=== PATIENT | female | born 1955 | race African-American/Black ===

== ENCOUNTER 2019-06-02 11:19 | Day surgery (SDC) | payer OTHER, BC ==
[2019-05-31 11:30] VITALS: BMI 30.2
[2019-06-02] MEDS ORDERED: PROPOFOL 20 ML ONE ×2 (14:07)
[2019-06-02 14:54] VITALS: TEMP 97.8
[2019-06-02 15:38] VITALS: BP 121/70; PULSE 58
--- NOTE | 2019-06-04 16:23 | PATH ---
Surgical Pathology Report Patient Name: BHAVIK REED [facility]. Rec. #: [id number] /Age/Gender: 1955 (Age: 64) / F Account: [id number] Location: [facility] Taken: 06/02/2019 Received: 06/02/2019 Reported: 06/04/2019 Physicians: Johanne Chester M.D. Specimen(s) Received A: POLYP DESCENDING COLON B: POLYP SIGMOID COLON Clinical History Surveillance colonoscopy Postoperative diagnosis: Colon polyps, hemorrhoids Final Diagnosis A. DESCENDING COLON POLYP, BIOPSY: COLONIC MUCOSA WITH FOCAL SURFACE HYPERPLASTIC CHANGE. B. SIGMOID COLON POLYP, POLYPECTOMY: HYPERPLASTIC POLYP. Electronically Signed Priyanka Silva M.D. Gross Description A. Received in formalin, labeled "biopsy polyp descending colon" is a storm, irregular portion of soft tissue measuring 0.4 cm. in greatest dimension. The specimen is submitted in toto in one cassette. B. Received in formalin, labeled "biopsy polyp sigmoid colon" is a storm, irregular portion of soft tissue measuring 0.4 cm. in greatest dimension. The specimen is submitted in toto in one cassette. DL/06/03/2019 saudi/06/03/2019
== END 2019-06-02 15:38 | disposition home or self-care (01) ==
LOC: FASU-ENDO 11:19
PROVIDERS: ATTEND Internal Medicine Gastroenterology
PROC: 0DBN8ZX Excision of Sigmoid Colon, Via Natural or Artificial Opening Endoscopic, Diagnostic (ICD-10-PCS; 2019-06-02)
PROC: 0DBM8ZX Excision of Descending Colon, Via Natural or Artificial Opening Endoscopic, Diagnostic (ICD-10-PCS; principal; 2019-06-02 14:26)
DX: Z86.010 Personal history of colon polyps (principal); D12.5 Benign neoplasm of sigmoid colon; K63.89 Other specified diseases of intestine; K64.1 Second degree hemorrhoids
CPT/HCPCS: 88305-TC

== ENCOUNTER 2019-11-24 10:44 | Day surgery (SDC) | payer OTHER, BC ==
[2019-11-23 15:59] VITALS: BMI 31.7
[2019-11-24] MEDS ORDERED: PROPOFOL 20 ML ONE ×2 (12:42)
[2019-11-24] MEDS ORDERED: LIDOCAINE HCL/PF 2% SDV 5ML VIAL ONE (12:42)
[2019-11-24 13:07] VITALS: TEMP 98
[2019-11-24 14:12] VITALS: BP 110/65; PULSE 61
--- NOTE | 2019-11-29 15:13 | PATH ---
Surgical Pathology Report Patient Name: BHAVIK REED [facility]. Rec. #: [id number] /Age/Gender: 1955 (Age: 64) / F Account: [id number] Location: [facility] Taken: 11/24/2019 Received: 11/24/2019 Reported: 11/29/2019 Physicians: Johanne Chester M.D. Specimen(s) Received A: SECOND PORTION OF DUODENUM B: ANTRUM C: BX GE JUNCTION Clinical History Dyspepsia Postoperative diagnosis: Gastritis Final Diagnosis A. SECOND PORTION OF DUODENUM, BIOPSY: DUODENAL MUCOSA WITH NO PATHOLOGIC FINDINGS. B. GASTRIC ANTRUM, BIOPSY: MILD CHRONIC GASTRITIS WITH FEATURES OF REACTIVE GASTROPATHY. IMMUNOSTAIN IS NEGATIVE FOR H. PYLORI ORGANISMS. C. GE JUNCTION, BIOPSY: COLUMNAR (GASTRIC CARDIA-TYPE) MUCOSA SHOWING MILD CHRONIC INFLAMMATION. NEGATIVE FOR INTESTINAL METAPLASIA. NO ESOPHAGEAL (SQUAMOUS) MUCOSA IS IDENTIFIED. Electronically Signed Rosenda Benson M.D. Gross Description A. Received in formalin, labeled "biopsy second portion of duodenum" is a storm, irregular portion of soft tissue measuring 0.3 cm. in greatest dimension. The specimen is submitted in toto in one cassette. B. Received in formalin, labeled "biopsy gastric antrum" is a storm, irregular portion of soft tissue measuring 0.4 cm. in greatest dimension. The specimen is submitted in toto in one cassette. C. Received in formalin, labeled "biopsy GE junction" is a storm, irregular portion of soft tissue measuring 0.4 cm. in greatest dimension. The specimen is submitted in toto in one cassette. 11/25/2019 [facility]11/25/2019
== END 2019-11-24 13:55 | disposition home or self-care (01) ==
LOC: FASU-ENDO 10:44
PROVIDERS: ATTEND Internal Medicine Gastroenterology
PROC: 0DB68ZX Excision of Stomach, Via Natural or Artificial Opening Endoscopic, Diagnostic (ICD-10-PCS; 2019-11-24)
PROC: 0DB48ZX Excision of Esophagogastric Junction, Via Natural or Artificial Opening Endoscopic, Diagnostic (ICD-10-PCS; 2019-11-24)
PROC: 0DB98ZX Excision of Duodenum, Via Natural or Artificial Opening Endoscopic, Diagnostic (ICD-10-PCS; principal; 2019-11-24 12:53)
DX: K29.50 Unspecified chronic gastritis without bleeding (principal); K31.9 Disease of stomach and duodenum, unspecified; K20.9 Esophagitis, unspecified; R10.13 Epigastric pain
CPT/HCPCS: 88305-TC; 88342-TC

== ENCOUNTER 2021-12-26 04:21 | Day surgery (SDC) | payer OTHER, BC ==
[2021-12-20 12:46] VITALS: BMI 32.6
[2021-12-26] MEDS ORDERED: BUPIVACAINE HCL/PF 0.5% (5MG/ML) 10 ML VIAL ONE (09:36)
[2021-12-26] MEDS ORDERED: MIDAZOLAM HCL 2 MG/2 ML SINGLE DOSE VIAL ONE (09:46)
[2021-12-26] MEDS ORDERED: PROPOFOL 20 ML ONE (09:46)
[2021-12-26] MEDS ORDERED: LIDOCAINE HCL/PF 2% SDV 5ML VIAL ONE (09:51)
[2021-12-26] MEDS ORDERED: ceFAZolin SODIUM 1 GM VIAL ONE (10:14)
[2021-12-26] MEDS ORDERED: ceFAZolin SODIUM 1 GM VIAL IVPB ONE (10:15)
[2021-12-26] MEDS ORDERED: KETOROLAC TROMETHAMINE 30 MG/1 ML VIAL ONE (10:26)
[2021-12-26] MEDS ORDERED: BUPIVACAINE HCL/PF 0.5% (5 MG/ML) 30 ML VIAL IJ ONE (10:30)
[2021-12-26] MEDS ORDERED: oxyCODONE HCL 5 MG TABLET PO PRN (11:13)
[2021-12-26] MEDS ORDERED: ONDANSETRON 4 MG/2 ML VIAL IVPUSH PRN (11:13)
[2021-12-26] MEDS ORDERED: LACTATED RINGERS SOLUTION 1,000 ML IV SCH (11:15)
[2021-12-26] MEDS ORDERED: hydrALAZINE HCL 20 MG/ML VIAL ONE (11:38)
[2021-12-26] MEDS ORDERED: ACETAMINOPHEN 325 MG TABLET (FP) ONE (13:40)
[2021-12-26] MEDS ORDERED: ACETAMINOPHEN 325 MG TABLET (FP) PO ONE (13:45)
[2021-12-26 13:49] VITALS: RESP 20
[2021-12-26 15:26] VITALS: BP 137/80; PULSE 70; TEMP 97.2
== END 2021-12-26 15:00 | disposition home or self-care (01) ==
LOC: JASU-SURG 04:21
PROVIDERS: ATTEND Orthopaedic Surgery
PROC: 0SBC4ZZ Excision of Right Knee Joint, Percutaneous Endoscopic Approach (ICD-10-PCS; 2021-12-26)
PROC: 0SBC4ZZ Excision of Right Knee Joint, Percutaneous Endoscopic Approach (ICD-10-PCS; principal; 2021-12-26 09:30)
DX: S83.281A Other tear of lateral meniscus, current injury, right knee, initial encounter (principal); S83.241A Other tear of medial meniscus, current injury, right knee, initial encounter; X58.XXXA Exposure to other specified factors, initial encounter; Y93.9 Activity, unspecified; Y92.9 Unspecified place or not applicable; Y99.9 Unspecified external cause status; M17.11 Unilateral primary osteoarthritis, right knee
CPT/HCPCS: 94760

== ENCOUNTER 2023-01-21 09:08 | Day surgery (SDC) | payer OTHER, BC ==
[2023-01-16 17:13] VITALS: BMI 32.1
[2023-01-21] MEDS ORDERED: CEFAZOLIN 2 GM in DEXTROSE 5%-WATER - 50 ML IVPB ONE (09:55)
[2023-01-21] MEDS ORDERED: ceFAZolin SODIUM 1 GM VIAL ONE (10:11)
[2023-01-21] MEDS ORDERED: VANCOMYCIN 1,000 MG VIAL (RESTRICTED TO ID ONLY) ONE (10:12)
[2023-01-21] MEDS ORDERED: BUPIVACAINE HCL/PF 0.5% (5 MG/ML) 30 ML VIAL IJ ONE (10:18)
[2023-01-21] MEDS ORDERED: BUPIVACAINE LIPOSOME/PF (EXPAREL) 266 MG/20 ML VIAL ONE (10:18)
[2023-01-21] MEDS ORDERED: MIDAZOLAM HCL 2 MG/2 ML SINGLE DOSE VIAL ONE ×3 (10:18→12:30)
[2023-01-21] MEDS ORDERED: CELECOXIB 200 MG CAPSULE PO ONE (11:00)
[2023-01-21] MEDS ORDERED: ALBUTEROL SO4 HFA INHALER IH PRN (11:42)
[2023-01-21] MEDS ORDERED: ONDANSETRON 4 MG/2 ML VIAL IVPUSH PRN ×2 (11:43→13:35)
[2023-01-21] MEDS ORDERED: TRANEXAMIC ACID 1000 MG/10 ML VIAL IVPUSH ONE (12:00)
[2023-01-21] MEDS ORDERED: ONDANSETRON 4 MG/2 ML VIAL ONE (12:06)
[2023-01-21] MEDS ORDERED: TRANEXAMIC ACID 1000 MG/10 ML VIAL ONE (12:06)
[2023-01-21] MEDS ORDERED: DEXAMETHASONE SOD PHOSPHATE 4 MG/1 ML VIAL ONE (12:06)
[2023-01-21] MEDS ORDERED: ePHEDrine SULFATE 50 MG/1 ML AMPULE ONE (12:33)
[2023-01-21] MEDS ORDERED: oxyCODONE HCL 5 MG TABLET PO PRN ×2 (13:35)
[2023-01-21] MEDS ORDERED: LACTATED RINGERS SOLUTION 1,000 ML IV SCH (13:45)
[2023-01-21] MEDS: KETOROLAC TROMETHAMINE 30 MG/1 ML VIAL IVPUSH SCH ×3 (13:49→18:48)
[2023-01-21] MEDS: ACETAMINOPHEN 1000 MG/100 ML BAG IVPB ONE ×2 (13:50→16:50)
[2023-01-21] MEDS: LACTATED RINGERS SOLUTION 1,000 ML IV SCH ×2 (14:20→21:53)
[2023-01-21] MEDS: CEFAZOLIN SODIUM 2 GM in DEXTROSE 5%-WATER 100 ML IVPB SCH (18:58)
[2023-01-21 19:26] VITALS: RESP 18
[2023-01-21] MEDS: oxyCODONE HCL 10 MG SUSTAINED ACTING TABLET PO SCH (21:55)
[2023-01-21] MEDS: SENNOSIDES/DOCUSATE COMBO (SENNA PLUS) TABLET (UD) PO SCH (21:55)
[2023-01-21] MEDS: ACETAMINOPHEN 500 MG TABLET (FP) PO SCH (21:56)
[2023-01-21] MEDS: BRIMONIDINE TARTRATE 0.2% OPHTHALMIC 5 ML BOTTLE OU SCH (21:58)
[2023-01-21] MEDS: TIMOLOL 0.5% OPHTHALMIC SOL 5 ML BOTTLE OU SCH (21:58)
[2023-01-21] MEDS ORDERED: PATIENT'S OWN MEDICATION (NON-FORMULARY) (Brimonidine Tartrate/Timolol [Combigan 0.2%-0.5% OU SCH (22:00)
[2023-01-22] MEDS: ACETAMINOPHEN 500 MG TABLET (FP) PO SCH ×3 (03:22→15:49)
[2023-01-22] MEDS: CEFAZOLIN SODIUM 2 GM in DEXTROSE 5%-WATER 100 ML IVPB SCH (03:22)
[2023-01-22] MEDS ORDERED: ASPIRIN 325 MG TABLET PO SCH (08:00)
[2023-01-22 08:33] LABS: HEMATOCRIT 36.4 % (32.4-45.2); HEMOGLOBIN 11.2 G/dL (10.7-15.3); MCHC 30.7 g/dl (32.0-36.0); MEAN CELL VOLUME 84.6 fl (80-96); PLATELET COUNT 209.4 10^3/uL (134-434); RDW 15.9 % (11.6-15.6); WHITE BLOOD COUNT 8.7 10^3/uL (4.0-10.8)
[2023-01-22] MEDS: SENNOSIDES/DOCUSATE COMBO (SENNA PLUS) TABLET (UD) PO SCH (09:26)
[2023-01-22] MEDS: oxyCODONE HCL 10 MG SUSTAINED ACTING TABLET PO SCH (09:27)
[2023-01-22] MEDS: TIMOLOL 0.5% OPHTHALMIC SOL 5 ML BOTTLE OU SCH (09:28)
[2023-01-22] MEDS: BRIMONIDINE TARTRATE 0.2% OPHTHALMIC 5 ML BOTTLE OU SCH (09:28)
[2023-01-22] MEDS ORDERED: metoPROLOL SUCCINATE 25 MG TAB.SR.24H (FP) PO SCH (10:00)
[2023-01-22] MEDS ORDERED: MULTIVITAMINS (DAILY MVI) TABLET (FP) PO SCH (10:00)
[2023-01-22] MEDS ORDERED: PANTOPRAZOLE 40 MG TABLET PO SCH (10:00)
[2023-01-22 14:32] VITALS: BP 131/61; PULSE 64; TEMP 97.8
[2023-01-22] MEDS ORDERED: ATORVASTATIN CA 20 MG TABLET (FP) PO SCH (22:00)
== END 2023-01-22 16:19 | disposition home health service (06) ==
LOC: FASUSAT 09:08 → FM/S 14:40 → FASUSAT 01-22 16:19
PROVIDERS: ATTEND Orthopaedic Surgery
PROC: 8E0Y0CZ Robotic Assisted Procedure of Lower Extremity, Open Approach (ICD-10-PCS; 2023-01-21)
PROC: 0SRC0J9 Replacement of Right Knee Joint with Synthetic Substitute, Cemented, Open Approach (ICD-10-PCS; principal; 2023-01-21 11:54)
DX: M17.11 Unilateral primary osteoarthritis, right knee (principal); I10 Essential (primary) hypertension; E78.5 Hyperlipidemia, unspecified; J45.909 Unspecified asthma, uncomplicated; H40.9 Unspecified glaucoma; Z91.013 Allergy to seafood
CPT/HCPCS: 20985; 27447; C1776; S2900; 36415; 73560-TC-RT-FY; 85027; 94760; 97010-GP; 97116-GP; 97161-GP; C1713; C1889

== ENCOUNTER 2023-12-16 04:59 | Day surgery (SDC) | payer OTHER, BC ==
[2023-12-11 10:47] VITALS: BMI 32.8
[2023-12-16 08:30] VITALS: RESP 16
[2023-12-16 10:26] VITALS: TEMP 97.3
[2023-12-16 10:40] VITALS: BP 110/59; PULSE 57
== END 2023-12-16 10:35 | disposition home or self-care (01) ==
LOC: JASU-ENDO 04:59
PROVIDERS: ATTEND Internal Medicine Gastroenterology
PROC: 0DB68ZX Excision of Stomach, Via Natural or Artificial Opening Endoscopic, Diagnostic (ICD-10-PCS; 2023-12-16)
PROC: 0DB48ZX Excision of Esophagogastric Junction, Via Natural or Artificial Opening Endoscopic, Diagnostic (ICD-10-PCS; 2023-12-16)
PROC: 0DB98ZX Excision of Duodenum, Via Natural or Artificial Opening Endoscopic, Diagnostic (ICD-10-PCS; principal; 2023-12-16 09:45)
DX: K29.50 Unspecified chronic gastritis without bleeding (principal)
CPT/HCPCS: 88305-TC; 88342-TC